=== PATIENT | female | born 1995 | race Hispanic/Latino ===

== ENCOUNTER 2018-08-30 19:01 | Emergency (ER) | payer OTHER ==
[2018-08-30] MEDS ORDERED: ACETAMINOPHEN 325 MG TAB ONE (20:05)
== END 2018-08-30 20:40 | disposition home or self-care (01) ==
LOC: EDH 19:01
DX: S60.222A Contusion of left hand, initial encounter (principal); W22.8XXA Striking against or struck by other objects, initial encounter; Y93.89 Activity, other specified; Y92.098 Other place in other non-institutional residence as the place of occurrence of the external cause; Y99.8 Other external cause status
CPT/HCPCS: 73130

== ENCOUNTER 2018-11-16 21:28 | Emergency (ER) | payer OTHER ==
[2018-11-16] MEDS ORDERED: ONDANSETRON ODT 4 MG TAB ONE (23:19)
[2018-11-16 23:21] LABS: APPEARANCE,URINE Clear (CLEAR); BILIRUBIN,URINE Negative (NEGATIVE); COLOR,URINE Dark Yellow (YELLOW); GLUCOSE, URINE (UA) Negative (NEGATIVE); KETONES,URINE Trace mg/dL (NEGATIVE); LEUKOCYTE ESTERASE ,URINE Negative (NEGATIVE); NITRATE,URINE Negative (NEGATIVE); OCCULT BLOOD,URINE Negative (NEGATIVE); PH,URINE 5.5 (5.0-8.0); PROTEIN,URINE Trace (NEGATIVE)
[2018-11-16 23:23] LABS: HCG,QUAL RESULT NEGATIVE (NEGATIVE)
[2018-11-16 23:39] LABS: BACTERIA,URINE Few /HPF (None Seen); MUCUS,URINE Few LPF (None Seen); RBC,URINE None Seen /HPF (0-1)
[2018-11-16 23:40] LABS: BASOPHILS % (AUTO) 0.7 % (0.0-5.0); EOSINOPHILS % (AUTO) 0.2 % (0.0-8.0); HEMATOCRIT 41.8 % (36-48); LYMPHOCYTES % (AUTO) 21.4 % (21.0-51.0); MEAN CORPUSCULAR HEMOGLOBIN 27.5 pg (27.0-33.0); MEAN CORPUSCULAR HGB CONC 34.9 g/dL (32.0-36.0); MEAN CORPUSCULAR VOLUME 78.9 fL (79-99); MONOCYTES % (AUTO) 6.3 % (3.0-13.0); NEUTROPHILS % (AUTO) 71.4 % (40.0-77.0); NUCLEATED RED BLOOD CELLS 0.1 % (0.0-0.19); PLATELET COUNT (AUTO) 376 K/uL (130-400); WHITE BLOOD COUNT (AUTO) 8.9 K/uL (4.8-10.8)
[2018-11-16 23:49] LABS: ALBUMIN 3.6 g/dL (3.5-5.0); BILIRUBIN,TOTAL 0.4 mg/dL (0.2-1.0); CREATININE 0.8 mg/dL (0.5-1.5); POTASSIUM 3.2 mmol/L (3.5-5.1)
[2018-11-17] MEDS ORDERED: SIMETHICONE 80 MG TAB.CHEW ONE (00:10)
[2018-11-17] MEDS ORDERED: HYOSCYAMINE SULFATE 0.125 MG TAB.SUBL SL ONE (00:11)
[2018-11-17] MEDS ORDERED: ACETAMINOPHEN 325 MG TAB ONE (00:22)
== END 2018-11-17 01:01 | disposition home or self-care (01) ==
LOC: EDH 21:28
DX: B34.9 Viral infection, unspecified (principal); R11.2 Nausea with vomiting, unspecified; R19.7 Diarrhea, unspecified; R50.9 Fever, unspecified
CPT/HCPCS: 36415; 80053; 81001; 81025; 82270; 83630; 83690; 85025; 87804

== ENCOUNTER 2019-05-28 21:09 | Emergency (ER) | payer OTHER | END 2019-05-28 21:56 | disposition home or self-care (01) | LOC: EDH 21:09 | DX: M54.5 Low back pain (principal) ==

== ENCOUNTER 2020-03-08 10:00 | Emergency (ER) | payer OTHER | END 2020-03-08 10:59 | disposition home or self-care (01) | LOC: EDH 10:00 | DX: G44.209 Tension-type headache, unspecified, not intractable (principal); Z20.828 Contact with and (suspected) exposure to other viral communicable diseases | CPT/HCPCS: 99281 ==

== ENCOUNTER 2022-11-08 00:47 | Emergency (ER) | payer OTHER ==
[~2022-11-08] VITALS: Ht 167.6 cm; Wt 112.5 kg
[2022-11-08] MEDS ORDERED: KETOROLAC 30MG VIAL (30MG/ML) IVP ONE (03:00)
[2022-11-08 03:19] LABS: BASOPHILS % (AUTO) 0.5 % (0.0-5.0); EOSINOPHILS % (AUTO) 1.5 % (0.0-8.0); HEMATOCRIT 37.1 % (36-48); LYMPHOCYTES % (AUTO) 31.2 % (21.0-51.0); MEAN CORPUSCULAR HEMOGLOBIN 26.6 pg (27.0-33.0); MEAN CORPUSCULAR HGB CONC 33.4 g/dL (32.0-36.0); MEAN CORPUSCULAR VOLUME 79.6 fL (79-99); MONOCYTES % (AUTO) 4.8 % (3.0-13.0); NEUTROPHILS % (AUTO) 61.5 % (40.0-77.0); PLATELET COUNT (AUTO) 379 K/uL (130-400); RED BLOOD CELL COUNT(AUTO) 4.66 MIL/uL (4.00-5.50); RED CELL DISTRIBUTION WIDTH 12.7 % (11.0-15.5); WHITE BLOOD COUNT (AUTO) 12.8 K/uL (4.8-10.8)
[2022-11-08 03:26] LABS: CREATININE 0.9 mg/dL (0.5-1.5)
[2022-11-08 03:33] LABS: ALBUMIN 3.3 g/dL (3.5-5.0); TOTAL PROTEIN, SERUM 7.2 g/dL (6.0-8.3)
[2022-11-08 03:38] LABS: INR 0.95 (0.85-1.15); PROTHROMBIN TIME 10.4 SEC (9.6-11.6)
[2022-11-08 03:40] LABS: PARTIAL THROMBOPLASTIN TIME 31.4 SEC (26.3-35.5)
[2022-11-08] MEDS ORDERED: IBUP-1493 PO (05:15)
[2022-11-08 06:04] VITALS: BP 127/62
== END 2022-11-08 06:04 | disposition home or self-care (01) ==
LOC: EDH 00:47
DX: S80.02XA Contusion of left knee, initial encounter (principal); G43.909 Migraine, unspecified, not intractable, without status migrainosus; W19.XXXA Unspecified fall, initial encounter; Y93.89 Activity, other specified; Y92.89 Other specified places as the place of occurrence of the external cause; Y99.8 Other external cause status; Z79.899 Other long term (current) drug therapy
CPT/HCPCS: 99284; 96374; 70450; 80053; 84703; 85025; 85610; 85730; 36415; J1885

== ENCOUNTER 2025-07-07 21:36 | Emergency (ER) | payer SELFPAY ==
[~2025-07-07] VITALS: Ht 167.6 cm; Wt 112.9 kg
[~2025-07-07 21:36] MED LIST: IBUP-1493 PO
[2025-07-07 22:44] LABS: IMMATURE GRANULOCYTE ABSOLUTE 0.05 K/uL (0-1); NUCLEATED RED BLOOD CELLS 0.0 % (0.0-0.19); PLATELET COUNT (AUTO) 365 K/uL (130-400); RED BLOOD CELL COUNT(AUTO) 4.55 MIL/uL (4.00-5.50); RED CELL DISTRIBUTION WIDTH 13.0 % (11.0-15.5); WHITE BLOOD COUNT (AUTO) 10.4 K/uL (4.8-10.8)
--- NOTE | 2025-07-07 23:14 | HMCIMG ---
EXAM: Ultrasound Obstetrical, Complete <14 weeks. CLINICAL HISTORY: Vaginal bleeding. TECHNIQUE: Transabdominal imaging of the maternal pelvis and a < 14-week gestation with image documentation COMPARISON: None provided. FINDINGS: Gestation: Single intrauterine gestational sac. Mean sac diameter: 1.3 cm (corresponding to 6w 2d ??? 4d) [place]-rump length (CRL): 0.21 cm (corresponding to 5w 5d ??? 3d) heart rate measures 103 bpm Yolk sac is present Small subchorionic bleed is evident, measures 8 ??? 3 ??? 4 mm Uterus: The uterus measures 9.7 ??? 4.5 ??? 6 cm No myometrial mass Cervix: Closed, unremarkable Ovaries: Right ovary measures 3.3 ??? 2.4 ??? 2.6 cm with a 1.4 ??? 1.3 x 1 cm cyst Left ovary measures 3.1 ??? 2.2 ??? 3 cm Both otherwise unremarkable No free fluid is evident. IMPRESSION: Single viable intrauterine . Small subchorionic hemorrhage. /Howe
[2025-07-07 23:22] LABS: CREATININE 0.8 mg/dL (0.5-1.0); GLOMERULAR FILTR. RATE CALC 102.0 mL/min (>90); GLUCOSE,RANDOM 99.0 mg/dL (70-105); HCG,QUANTITATIVE 11363.0 mIU/mL (0-5); SODIUM SERUM 137.0 mmol/L (136-145); UREA NITROGEN, BLOOD 13.0 mg/dL (7-18)
--- NOTE | 2025-07-07 23:25 | NUR ---
PATIENT BROUGHT BACK TO ED ORELLANA D; PATIENT CARE ASSUMED AT THIS TIME
[2025-07-07 23:27] VITALS: BP 132/80; PULSE 84; RESP 18; TEMP 98.7; O2SAT 98
[2025-07-07 23:31] LABS: APPEARANCE,URINE CLEAR (CLEAR); GLUCOSE, URINE (UA) NEGATIVE (NEGATIVE); LEUKOCYTE ESTERASE ,URINE 25 Leu/uL (NEGATIVE); NITRATE,URINE NEGATIVE (NEGATIVE); OCCULT BLOOD,URINE MODERATE (NEGATIVE)
[2025-07-07 23:32] LABS: ADD UA MICROSCOPIC YES
--- NOTE | 2025-07-07 23:37 | ERN ---
ED Note History of Present Illness Stated Complaint: C/O VAGINAL SPOTTING W/CRAMPING; 6WKS Chief Complaint: Vaginal Bleeding Time Seen by MD: 21:40 Dictation: 29-YEAR-OLD FEMALE PRESENTS TO ER COMPLAINTS OF VAGINAL SPOTTING AND PELVIC CRAMPING. PATIENT STATES SHE IS ABOUT 6 WEEKS . PATIENT HAS NO OB IN NO CARE. Allergies: Coded Allergies: No Known Drug Allergies (Unverified Allergy, Unknown, 03/08/20) Home Meds Active Scripts Ibuprofen (Motrin/Advil) 800 Mg Tab, 800 MG PO TID, #30 TAB Prov:MARYURI JOHNSTON MD 11/08/22 Past Medical History Past Medical History: No Pertinent History Surgical History: None Family History: Negative Social History: Negative LMP: May 23, 2025 : 1 Para: 0 Aborts: 0 Review of System Dictation CONSTITUTIONAL: NEGATIVE FOR FEVER,CHILLS, AND WEIGHT LOSS EYES: NEGATIVE FOR INJURY, PAIN,REDNESS, AND DISCHARGE ENT: NEGATIVE FOR INJURY,PAIN OR SWELLING CARDIOVASCULAR: NEGATIVE FOR CHEST PAIN, PALPITATIONS, AND EDEMA RESPIRATORY: NEGATIVE FOR SHORTNESS OF BREATH, COUGH, WHEEZING, AND PLEURITIC CHEST PAIN ABDOMEN/GI: NEGATIVE FOR ABDOMINAL PAIN, NAUSEA, VOMITING, DIARRHEA, AND CONSTIPATION BACK: NEGATIVE FOR INJURY AND PAIN : POSITIVE VAGINAL BLEEDING MS/EXTREMITY: NEGATIVE FOR INJURY AND DEFORMITY SKIN: NEGATIVE FOR RASH, AND DISCOLORATION NEURO: NEGATIVE FOR HEADACHE, WEAKNESS, NUMBNESS, TINGLING, AND SEIZURE PSYCH: NEGATIVE FOR SUICIDE IDEATION, HOMICIDAL IDEATION, AND HALLUCINATIONS ALLERGY/IMMUNOLOGY: NEGATIVE FOR HIVES, RASH, AND ALLERGIES Initial Vital Sign VS Vital Signs Date Time Temp Pulse Resp B/P (MAP) Pulse Ox O2 Delivery O2 Flow Rate FiO2 07/07/25 21:38 98.6 87 20 144/95 100 Room Air 07/07/25 23:27 0 21 Physical Exam Dictation GENERAL: AWAKE, ALERT, NAD HEAD/FACE: NORMOCEPHALIC, ATRAUMATIC EYES: PERRL, EOMI, VISION AT BASELINE ENT: ORAL CAVITY CLEAR, TMS CLEAR, NO SIGNS OF INFECTION NECK: TRACHEA MIDLINE, SUPPLE, NO NUCHAL RIGIDITY CARDIOVASCULAR: RRR, NORMAL S1/S2, NO MRGS, NO JVD RESPIRATORY: CTAB, NO RESPIRATORY DISTRESS, NO RALES OR WHEEZES ABDOMEN: SOFT, NON-TENDER, NON-DISTENDED, NORMAL BOWEL SOUNDS, NO GUARDING OR REBOUND. SKIN: WARM, DRY, NORMAL TURGOR, NO RASH MS/EXTREMITY: PULSES EQUAL, NO CYANOSIS, NEUROVASCULAR INTACT, FROM NEURO: COAX4, GCS 15, STRENGTH 5/5, CN 2-12 INTACT, NORMAL CEREBELLAR EXAM, NORMAL GAIT, PSYCH: NORMAL BEHAVIOR, MOOD, AND AFFECT NORMAL Results (Laboratory/Radiology) Laboratory/Radiology Laboratory Tests Test 07/07/25 22:35 07/07/25 23:23 White Blood Count 10.4 K/uL (4.8-10.8) Red Blood Count 4.55 MIL/uL (4.00-5.50) Hemoglobin 12.6 g/dL (12.0-16.0) Hematocrit 36.2 % (36-48) Mean Corpuscular Volume 79.6 fL (79-99) Mean Corpuscular Hemoglobin 27.7 pg (27.0-33.0) Mean Corpuscular Hemoglobin Concent 34.8 g/dL (32.0-36.0) Red Cell Distribution Width 13.0 % (11.0-15.5) Platelet Count 365 K/uL (130-400) Mean Platelet Volume 11.0 fL (7.5-10.5) H Immature Granulocyte % (Auto) 0.5 % (0-1) Neutrophils (%) (Auto) 62.9 % (40.0-77.0) Lymphocytes (%) (Auto) 29.5 % (21.0-51.0) Monocytes (%) (Auto) 4.6 % (3.0-13.0) Eosinophils (%) (Auto) 1.9 % (0.0-8.0) Basophils (%) (Auto) 0.6 % (0.0-5.0) Neutrophils # (Auto) 6.5 K/uL (1.8-7.7) Lymphocytes # (Auto) 3.1 K/uL (1.0-4.8) Monocytes # (Auto) 0.5 K/uL (0.1-1.0) Eosinophils # (Auto) 0.20 K/uL (0.00-0.70) Basophils # (Auto) 0.06 K/uL (0.00-0.20) Absolute Immature Granulocyte (auto 0.05 K/uL (0-1) Nucleated Red Blood Cells 0.0 % (0.0-0.19) Sodium Level 137 mmol/L (136-145) Potassium Level 3.8 mmol/L (3.5-5.1) Chloride Level 105 mmol/L (101-111) Carbon Dioxide Level 28 mmol/L (21-32) Blood Urea Nitrogen 13 mg/dL (7-18) Creatinine 0.8 mg/dL (0.5-1.0) Glomerular Filtration Rate Calc 102 mL/min (>90) Random Glucose 99 mg/dL (70-105) Total Calcium 8.7 mg/dL (8.5-10.1) Human Chorionic Gonadotropin, Quant 84771 mIU/mL (0-5) H Urine Color COLORLESS (YELLOW) Urine Appearance CLEAR (CLEAR) Urine pH 7.0 (5.0-8.0) Urine Specific [place] 1.016 (1.001-1.031) Urine Protein NEGATIVE mg/dL (NEGATIVE) Urine Glucose (UA) NEGATIVE mg/dL (NEGATIVE) Urine Ketones NEGATIVE mg/dL (NEGATIVE) Urine Occult Blood MODERATE (NEGATIVE) H Urine Nitrate NEGATIVE (NEGATIVE) Urine Bilirubin NEGATIVE mg/dL (NEGATIVE) Urine Urobilinogen 0.2 mg/dL (0.2-1.0) Urine Leukocyte Esterase 25 [place]/uL (NEGATIVE) H ED Course ED Course Orders Procedure Category Date Status Time Cbc With Differential LAB 07/07/25 Complete 21:40 Hcg,Quantitative LAB 07/07/25 Complete 21:40 Us Ob <14 Weeks US 07/07/25 Resulted 21:40 Basic Metabolic Panel LAB 07/07/25 Complete 21:40 Urinalysis Profile LAB 07/07/25 In Process Catherized 21:40 Type And Screen BBK 07/07/25 Complete 21:40 Vital Signs Date Time Temp Pulse Resp B/P (MAP) Pulse Ox O2 Delivery O2 Flow Rate FiO2 07/07/25 23:27 98.8 84 18 132/80 98 Room Air* 0 21 07/07/25 21:38 98.6 87 20 144/95 100 Room Air Medical Decision Making MDM 29-YEAR-OLD FEMALE PRESENTS TO ER COMPLAINTS OF VAGINAL SPOTTING AND PELVIC CRAMPING. PATIENT STATES SHE IS ABOUT 6 WEEKS . PATIENT HAS NO OB IN NO CARE. MDM: DIFFERENTIAL DIAGNOSIS: , THREATENED , SUBCHORIONIC BLEED, UTI RATIONALE: TESTS CONSIDERED AND ORDERED SECONDARY TO SHARED DECISION MAKING INCLUDE: LABS, ECG AND RADIOLOGY PREVIOUS OUTSIDE RECORDS REVIEWED: OLD ER VISITS. RISK OF COMPLICATION AND/OR MORBIDITY OR MORTALITY OF PATIENT MANAGEMENT: NONE MEDICATIONS-PER MEDICATION RECONCILIATION NEED FOR HOSPITALIZATION: PATIENT DOES NOT MEET CRITERIA FOR HOSPITALIZATION. NEED FOR EMERGENCY MAJOR/MINOR SURGERY: NO PER SONO PATIENT IS APPROXIMATELY 6 WEEKS 3 DAYS. HEART TONES AT 103.. PATIENT ADVISED ON ER/OB SIGNS AND SYMPTOMS. PATIENT EDUCATED ON THREATENED AB. ADVISED SUBCHORIONIC BLEED NOTED ON ULTRASOUND. NEED TO FOLLOW UP WITH OB. PATIENT VSS, NAD, NONTOXIC, STABLE FOR DISCHARGE. PT GIVEN DISCHARGE INSTRUCTIONS IN [place] TERMS AND UNDERSTOOD, ALL QUESTIONS ANSWERED. PT WILL FOLLOW UP WITH PCP AND RETURN TO THE ER IF WORSE. THERE ARE NO SOCIAL CONCERNS WITH THIS PATIENT. PRESCRIPTION DRUG MANAGEMENT PRESCRIPTIONS WILL INCLUDE SYMPTOMATIC CARE PATIENT'S PRIOR EXTERNAL MEDICAL RECORDS FROM OTHER ER VISITS WERE REVIEWED BY ME INDICATED. PRIOR TESTING AND RESULTS FROM PREVIOUS VISITS WERE REVIEWED. PRIOR TESTS WERE TAKEN INTO ACCOUNT WITH MEDICAL DECISION MAKING AND RESOURCE UTILIZATION, INDEPENDENT HISTORIAN/HISTORIANS WERE USED TO OBTAIN COMPLETE MEDICAL HISTORY. I INDEPENDENTLY INTERPRETED THE TEST THAT WERE PERFORMED, RESULTS WERE REVIEWED BY ME AND CONSIDERED FINDINGS ON RADIOLOGY IF ORDERED. DX & DISP Disposition: Discharge Departure Impression: Primary Impression: Threatened Additional Impression: Subchorionic hemorrhage in first trimester Condition: Stable Additional Instructions: FOLLOW-UP WITH YOUR PCP IN 24-72 HOURS AND IN THE EVENT IF SYMPTOMS WORSEN OR AN EMERGENCY OVERNIGHT REPORT TO THE ED IMMEDIATELY Referrals: SELF,REFERRAL (PCP) KJ QUINONES NP Jul 07, 2025 23:36
[2025-07-07 23:42] LABS: SQUAMOUS EPITHELIAL CELL,UR RARE /HPF (0-2)
== END 2025-07-07 23:56 | disposition home or self-care (01) ==
LOC: EDH 21:36
DX: O20.0 Threatened abortion (principal); O20.8 Other hemorrhage in early pregnancy; Z3A.01 Less than 8 weeks gestation of pregnancy; Z79.1 Long term (current) use of non-steroidal anti-inflammatories (NSAID)
CPT/HCPCS: 36415; 76801; 80048; 81001; 84702; 85025; 86850; 86900; 86901; 87086; 99284